=== PATIENT | male | born 2000 | race Caucasian/White ===

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

== ENCOUNTER 2018-10-09 13:37 | Emergency (ER) | payer OTHER ==
[~2018-10-09] VITALS: Ht 182.9 cm; Wt 103.5 kg
[~2018-10-09 13:37] MED LIST changes: +CYCL10TA7 PO
[2018-10-09 13:38] VITALS: BP 135/78; PULSE 82; RESP 18; Ht 182.9 cm; Wt 103.5 kg
[2018-10-09] MEDS ORDERED: morphine 4 MG/ML VIAL IV STA (13:54)
--- NOTE | 2018-10-09 14:00 | ERD ---
ER Documentation Chief Complaint Chief Complaint sharp pain @ mid abdomen since 9 pm last night HPI Patient is a 18-year-old male who presents the ER for concerns of sharp epigastric pain which started around 9 PM yesterday. Patient states he did go to [facility] and the [facility] this morning and he was given a GI cocktail as well as IV medication. He states the GI cocktail did not help off the IV medication did. Patient states that the pain has never returned and become worse. Patient states pain is localized to the epigastric region. Patient denies any vomiting however he does report nausea. He states he had enchiladas last night. He does admit to eating fried and spicy foods. Patient denies any chest pain or shortness of breath. Patient denies any fevers or chills. Patient denies any urinary symptoms. Patient denies any diarrhea. ROS All systems reviewed and are negative except as per history of present illness. Medications Home Meds Active Scripts Acetaminophen* (Tylophen*) 500 Mg Capsule, 1 CAP PO Q6H PRN for PAIN AND OR ELEVATED TEMP, #20 CAP Prov:TESSIE GARDNER PA-C 10/09/18 Famotidine* (Pepcid*) 20 Mg Tablet, 20 MG PO BID for 30 Days, TAB Prov:TESSIE GARDNER PA-C 10/09/18 Ibuprofen* (Ibuprofen*) 600 Mg Tablet, 600 MG PO Q6, #30 TAB Prov:HARISH SEQUEIRA PA-C 03/09/17 Cyclobenzaprine Hcl* (Cyclobenzaprine Hcl*) 10 Mg Tablet, 10 MG PO QHS, #15 TAB Prov:HARISH SEQUEIRA PA-C 03/09/17 Ciprofloxacin Hcl* (Ciprofloxacin Hcl*) 500 Mg Tablet, 500 MG PO BID for 10 Days, TAB Prov:TESSIE GARDNER PA-C 12/04/16 Ibuprofen* (Motrin*) 600 Mg Tab, 600 MG PO Q6, #30 TAB Prov:TESSIE GARDNER PA-C 12/04/16 Polyethylene Glycol* (Miralax*) 17 Gm Powd.pack, 17 GM PO DAILY, #7 Prov:JENNIFER MONTOYA MD 08/27/16 Ibuprofen* (Motrin*) 600 Mg Tab, 600 MG PO Q6H PRN for PAIN AND OR ELEVATED TEMP, #30 TAB Prov:BIBI ARAMBULA MD 06/07/16 Allergies Allergies: Coded Allergies: No Known Allergy (Unverified , 08/27/16) PMhx/Soc History of Surgery: No Anesthesia Reaction: No Hx Neurological Disorder: No Hx Respiratory Disorders: Yes (asthma ) Hx Cardiac Disorders: No Hx Psychiatric Problems: No Hx Miscellaneous Medical Probl: No Hx Alcohol Use: Yes Hx Substance Use: Yes Hx Tobacco Use: No FmHx Family History: No diabetes Physical Exam Vitals Vital Signs Date Temp Pulse Resp B/P (MAP) Pulse Ox O2 O2 Flow FiO2 Time Delivery Rate 10/09/18 96.5 82 18 135/78 96 13:38 (97) Physical Exam GENERAL: Well-developed, well-nourished male. Appears in no acute distress. HEAD: Normocephalic, atraumatic. EYES: Pupils are equally reactive bilaterally. EOMs grossly intact. No conjunctival erythema. ENT: Moist mucous membranes. No uvula deviation. No kissing tonsils. NECK: Supple. No meningismus. Normal range of motion of the neck. LUNG: Clear to auscultation bilaterally. No rhonchi, wheezing, rales or coarse breath sounds. HEART: Regular rate and rhythm. No murmurs, rubs or gallops. ABDOMEN: Soft nondistended. Tender to palpation in the epigastric region. No scars, ecchymosis or rashes noted. Soft, nontender, and nondistended. Positive bowel sounds in all four quadrants. No rebound tenderness, no guarding. (-) McBurney's point tenderness. No CVA tenderness. EXTREMITIES: Equal pulses bilaterally. No peripheral clubbing, cyanosis or edema. No unilateral leg swelling. NEUROLOGIC: Alert and oriented. Moving all four extremities without any d ifficulty. Normal speech. Steady gait. SKIN: Normal color. Warm and dry. No rashes or lesions. Result Diagram: 10/09/18 1405 10/09/18 1405 Results 24 hrs Laboratory Tests Test 10/09/18 14:05 10/09/18 15:49 White Blood Count 7.8 10^3/ul Red Blood Count 5.79 10^6/ul Hemoglobin 17.0 g/dl Hematocrit 51.7 % Mean Corpuscular Volume 89.3 fl Mean Corpuscular Hemoglobin 29.4 pg Mean Corpuscular Hemoglobin Concent 32.9 g/dl Red Cell Distribution Width 13.1 % Platelet Count 166 10^3/UL Mean Platelet Volume 11.2 fl Immature Granulocytes % 0.400 % Neutrophils % 82.1 % Lymphocytes % 7.3 % Monocytes % 9.0 % Eosinophils % 0.8 % Basophils % 0.4 % Nucleated Red Blood Cells % 0.0 /100WBC Immature Granulocytes # 0.030 10^3/ul Neutrophils # 6.4 10^3/ul Lymphocytes # 0.6 10^3/ul Monocytes # 0.7 10^3/ul Eosinophils # 0.1 10^3/ul Basophils # 0.0 10^3/ul Nucleated Red Blood Cells # 0.0 10^3/ul Sodium Level 142 mmol/L Potassium Level 4.2 mmol/L Chloride Level 106 mmol/L Carbon Dioxide Level 23 mmol/L Anion Gap 13 Blood Urea Nitrogen 12 mg/dl Creatinine 0.79 mg/dl Est Glomerular Filtrat Rate mL/min > 60 mL/min Glucose Level 94 mg/dl Calcium Level 9.4 mg/dl Total Bilirubin 0.9 mg/dl Direct Bilirubin 0.00 mg/dl Indirect Bilirubin 0.9 mg/dl Aspartate Amino Transf (AST/SGOT) 31 IU/L Alanine Aminotransferase (ALT/SGPT) 28 IU/L Alkaline Phosphatase 90 IU/L Troponin I < 0.012 ng/ml Total Protein 8.8 g/dl Albumin 4.9 g/dl Globulin 3.90 g/dl Albumin/Globulin Ratio 1.25 Lipase 52 U/L Bedside Urine pH (LAB) 7.0 Bedside Urine Protein (LAB) 1+ Bedside Urine Glucose (UA) Negative Bedside Urine Ketones (LAB) Trace Bedside Urine Blood Trace-intact Bedside Urine Nitrite (LAB) Negative Bedside Urine Leukocyte Esterase (L Negative Current Medications Medications Dose Sig/Cirilo Start Time Status Last (Trade) Ordered Route PRN Stop Time Admin Dose Reason Admin Morphine 4 mg ONCE STAT 10/09/18 DC Sulfate IV 13:54 (morphine) 10/09/18 14:09 1 tab ONCE ONCE 10/09/18 DC 10/09/18 Acetaminophen PO 14:30 14:35 / 10/09/18 14:31 Hydrocodone Bitart ([place] ([id number])) Procedures/MDM ED COURSE: The patient was stable throughout ED course. I kept the patient and/or family informed of laboratory and diagnostic imaging results throughout the ED course. DIAGNOSTIC IMAGING: Read by radiologist. Patient: ARGELIA KYLE : 2000 Age: 18 Sex: M MR #: [id number] DOS: 10/09/18 1354 Ordering MD: TESSIE GARDNER PA-C Location: [facility] Room/Bed: PROCEDURE: US Abdomen. CLINICAL INDICATION: abdominal pain TECHNIQUE: Multiple real-time images were acquired of the patient's right upper quadrant abdomen and retroperitoneum utilizing a high resolution transducer. COMPARISON: 12/04/2016 FINDINGS: The liver demonstrates slightly increased echogenicity. The liver is enlarged in size and no focal solid lesions are seen. The liver measures 19.4 cm in length. The portal vein is patent with normal direction of flow. No intrahepatic biliary dilatation is seen. No gallstones are identified within the gallbladder. There is no pericholecystic fluid or gallbladder wall thickening. The common bile duct measures 5 mm in maximal dimension. The visualized portions of the pancreas are unremarkable. No free fluid is identified. The right kidney is normal in size, and demonstrate normal echogenicity and cortical thickness. The right kidney measures 10.7 cm in long dimension. There is no evidence of hydronephrosis. There are no kidney stones. RPTAT: AA IMPRESSION: Mild hepatomegaly with fatty infiltration of the liver. No evidence of gallstones. .Mohan Silva MD, MD Date Time Electronically viewed and signed by .Mohan Silva MD, MD on 10/09/2018 14:51 .S/ CC: TESSIE GARDNER PA-C [phone] PROCEDURES: None. MEDICATIONS GIVEN: [place] Patient tolerated medication well with no adverse reactions. Patient reported improvement in pain. MEDICAL DECISION MAKING: Patient a 18-year-old male who presents the ER for concerns of sharp epigastric pain yesterday. Patient was seen at [facility] and the [facility] earlier today and diagnosed with gastritis. Patient states upon returning home his pain is gotten worse thus he presents to [facility].. Vital signs were reviewed. Patient is afebrile. Blood work was obtained. CBC showed no evidence of systemic infection or severe anemia. CMP showed no evidence of electrolyte abnormalities, severe acidosis, alkalosis, renal failure, or liver disease. Lipase showed no evidence of acute pancreatitis. Troponin was negative. UA showed no evidence of acute infection or hematuria. Gallbladder ultrasound showed no gallstones however mild hepatomegaly was noted. Dietary changes were advised. Patient advised to avoid ibuprofen. At this time, patient likely has gastritis versus GERD. Patient was advised to follow-up with a GI specialist as I am unable to rule out H. pylori. Referral information advised. Differential diagnoses included but was not limited to acute coronary syndrome, AAA, mesenteric ischemia, lower lobe pneumonia, DKA, bowel perforation, cholecystitis, choledocholithiasis, ascending cholangitis, hepatic abscess, pancreatitis, splenic rupture, diverticulitis, UTI, pyelonephritis, nephrolithiasis, appendicitis, constipation, testicular torsion, epididymitis, urethritis, or prostatitis. PRESCRIPTIONS: Tylenol, Pepcid DISCHARGE: At this time, patient is stable for discharge and outpatient management. I have instructed the patient to follow-up with his/her primary care physician in 1-2 days. I have instructed the patient to promptly return to the ER at any time for any new or worsening symptoms including increased pain, nausea, vomiting, diarrhea, fever, weakness or LOC. The patient and/or family expressed understanding of and agreement with this plan. All questions were answered. Home care instructions were provided. Disclaimer: Inadvertent spelling and grammatical errors are likely due to EHR/dictation software use and do not reflect on the overall quality of patient care. Also, please note that the electronic time recorded on this note does not necessarily reflect the actual time of the patient encounter. Departure Diagnosis: Primary Impression: Abdominal pain Abdominal location: epigastric Qualified Codes: R10.13 - Epigastric pain Condition: Fair Patient Instructions: Epigastric Pain (Uncertain Cause) Referrals: [facility] (PCP) STANTON ANDERSON ANGELA BUCH, KENNETH L MD CHITAYAT, RON EPHRAIM, PAUL D GULSRUD, PAUL O MD KLASKY,JATIN RICARDO MD,AMY PORTILLO MD, MD Additional Instructions: Follow-up with a GI specialist on outpatient basis. Unable to rule out H pylori at this time. He may need endoscopy for further management of your symptoms. Call your primary care doctor TOMORROW for an appointment during the next 1-2 days.See the doctor sooner or return here if your condition worsens before your appointment time. TESSIE GARDNER PA-C October 09, 2018 14:00
[2018-10-09] MEDS ORDERED: HYDROCODONE/APAP (5/325) TAB PO ONE (14:30)
[2018-10-09] MEDS ORDERED: FAMO-96 PO (15:55)
[2018-10-09] MEDS ORDERED: ACET500C5 PO (15:56)
== END 2018-10-09 16:04 | disposition home or self-care (01) ==
LOC: FTE 13:37
DX: R10.13 Epigastric pain (principal); J45.909 Unspecified asthma, uncomplicated
CPT/HCPCS: 36415; 76705; 80053; 81003; 83690; 84484; 85025; Z7502; Z7610; J2270